=== PATIENT | male | born 1945 | race Caucasian/White ===

== ENCOUNTER → 2024-03-13 | Outpatient (CLI) | payer OTHER ==
[~2024-03-13] MED LIST: REGADENOSON 0.4 MG/5 ML PF SYG IVP ONE
--- NOTE | 2024-03-13 19:05 | HMCSR ---
APPROVED REPORT TEST INDICATIONS Dyspnea The imaging protocol used to acquire images was Rest Tc-99m/stress Tc-99m 1 day Consent: The procedure was explained and understood by the patient. Informerd consent was witnessed Tomasa Jessica Jr (N)(ARRT) First, low dose rest was performed then high dose stress. RESTING DATA: The resting ekg shows: NSR Rest SPECT myocardial perfusion imaging was performed in supine position minutes following the intra venous injection of 11 mCi of Tc-99 Sestamibi. Time of rest injection: 1200 Date: 03/13/2024 PHARMACOLOGIC STRESS: Pharmacologic stress test was performed by injecting regadenoson 0.4 mg IV push followed by the intra venous injection of 2*9 mCi of Tc-99 Sestamibi. Time of stress injection: 1250 Date: 03/13/2024 Heart Rate at time of stress injection: 70 bpm. The images were gated to evaluate regional wall motion and calculate left ventricular ejection fracti on. STRESS DETAILS Reason for Termination: Infusion complete Stress Symptoms: Dyspnea, Stomach Pressure Max HR Achieved: 81 bpm % of APMHR Achieved: 68 Max Blood Pressure: 153/71 mmHg Stress ECG: NSR Study quality was good. Lung uptake was Normal. LV PERFUSION Small to moderate mostly fixed anteroseptal wall defect with minimal reversibility IMPRESSION Mildly abnormal pharmacologic nuclear stress test. Conclusion Mild anteroseptal wall ischemia Mildly abnormal pharmacologic nuclear stress test.
== END | disposition home or self-care (01) ==
LOC: RAH 11:37
PROVIDERS: ATTEND Internal Medicine Cardiovascular Disease
DX: I99.8 Other disorder of circulatory system (principal); R06.02 Shortness of breath
CPT/HCPCS: 78452; 93017; J2785; A9500 ×2